=== PATIENT | female | born 1970 | race Caucasian/White ===

== ENCOUNTER 2017-10-26 15:06 | Emergency (ER) | payer OTHER ==
[~2017-10-26 15:06] MED LIST: Ativan1 MG PO; BUDE32NIS; BUPR150T2; CETI10; CHOL10002 PO; CLON.1; CLON.1 PO; CLON1; CLON1 PO; DOCU100; ESTR2 PO; FISH1000 PO; FLAX PO; HORMONES; Hair, Skin & N1 EACH PO; LAMO25; LITH300C PO; LORA2; LORA2 PO; MELA3 PO; MULVITB&C PO; ONDA8ODT MM; OXYACE5T PO; OXYB5 PO; PROM25 PO; QUET25 PO; RANI150 PO; RXHYDMOR2 PO; RXLORA1 PO; SAPHRIS5 MG SL; SENNP; SERT100; SERT50 PO; SULTRIDS PO; TOPI100; TOPI100 PO; TOPI25; TRAZ50 PO; ZOLP10
== END 2017-10-26 16:12 | disposition left against medical advice (07) ==
LOC: ER 15:06
DX: Z53.21 Procedure and treatment not carried out due to patient leaving prior to being seen by health care provider (principal)

== ENCOUNTER 2017-10-27 11:09 | Emergency (ER) | payer OTHER ==
[~2017-10-27] VITALS: Ht 160 cm; Wt 88.5 kg
== END 2017-10-27 14:34 | disposition home or self-care (01) ==
LOC: ER 11:09
DX: S06.0X1A Concussion with loss of consciousness of 30 minutes or less, initial encounter (principal); F31.9 Bipolar disorder, unspecified; Z88.8 Allergy status to other drugs, medicaments and biological substances; Z79.899 Other long term (current) drug therapy; Z87.891 Personal history of nicotine dependence; W01.0XXA Fall on same level from slipping, tripping and stumbling without subsequent striking against object, initial encounter; Y99.0 Civilian activity done for income or pay
CPT/HCPCS: 70450; 99284

== ENCOUNTER 2017-12-19 05:14 | Emergency (ER) | payer OTHER ==
[~2017-12-19] VITALS: Ht 160 cm; Wt 87.1 kg
[2017-12-19 06:54] LABS: BASOPHILS ABSOLUTE AUTO 0.05 K/mm3 (0.00-0.23); BASOPHILS PERCENT AUTO 0 % (0-2); EOSINOPHILS ABSOLUTE AUTO 0.08 K/mm3 (0.00-0.68); EOSINOPHILS PERCENT AUTO 1 % (0-6); Hematocrit 40.4 % (33.0-51.0); Hemoglobin 13.1 g/dL (11.5-16.0); IMMATURE GRAN ABSOLUTE AUTO 0.03 K/mm3 (0.00-0.10); IMMATURE GRAN PERCENT AUTO 0 % (0-1); LYMPHOCYTES ABSOLUTE AUTO 2.16 K/mm3 (0.84-5.20); LYMPHOCYTES PERCENT AUTO 19 % (21-46); MONOCYTES ABSOLUTE AUTO 0.77 K/mm3 (0.16-1.47); MONOCYTES PERCENT AUTO 7 % (4-13); Mean Corpuscular HGB 29.4 pg (26.0-34.0); Mean Corpuscular HGB Conc 32.4 g/dL (31.5-36.5); Mean Corpuscular Volume 91 fL (80-100); Mean Platelet Volume 9.6 fL (9.1-12.4); NEUTROPHILS ABSOLUTE AUTO 8.37 K/mm3 (1.96-9.15); NEUTROPHILS PERCENT AUTO 73 % (41-73); Platelet Count 274 K/mm3 (150-400); RDW Coefficient Variation 13.3 % (11.7-14.2); RDW Standard Deviation 43.8 fL (35.1-46.3); Red Blood Cell Count 4.45 M/mm3 (3.80-5.20); White Blood Cell Count 11.46 K/mm3 (4.00-11.30)
[2017-12-19 07:12] LABS: Alanine Aminotransfer (ALT/SGP 22 U/L (12-78); Albumin, Blood 3.4 g/dL (3.4-5.0); Albumin/Globulin Ratio 0.8 (0.8-1.8); Alk Phos 88 U/L (50-136); Anion Gap 10 mmol/L (6-16); Aspartate Aminotrans (AST/SGOT 17 U/L (12-37); Bilirubin, Total 0.2 mg/dL (0.1-1.0); Blood Urea Nitrogen 16 mg/dL (8-24); Bun/Creatinine Ratio 20.1 (12.0-20.0); CO2, Blood 19 mmol/L (21-32); Calcium, Blood 8.7 mg/dL (8.5-10.1); Chloride, Blood 110 mmol/L (98-108); Glomerular Filtration Rate >60 (60-); Glucose, Blood 106 mg/dL (70-99); Potassium, Blood 4.1 mmol/L (3.5-5.5); Sodium, Blood 139 mmol/L (136-145); Total Protein, Blood 7.4 g/dL (6.4-8.2)
[2017-12-19] MEDS ORDERED: Percocet 5-3251 EACH PO (08:52)
== END 2017-12-19 09:16 | disposition home or self-care (01) ==
LOC: ER 05:14
PROVIDERS: Emergency Medicine
DX: N13.2 Hydronephrosis with renal and ureteral calculous obstruction (principal); F31.9 Bipolar disorder, unspecified; Z87.891 Personal history of nicotine dependence; Z88.8 Allergy status to other drugs, medicaments and biological substances; Z79.899 Other long term (current) drug therapy
CPT/HCPCS: 36415; 76770; 80053; 81000; 85025; 96374; 96375; 96376; 99284; J1170; J1885; J2405

== ENCOUNTER → 2018-02-10 | Outpatient (CLI) | payer OTHER ==
[~2018-02-10] MED LIST changes: +Percocet 5-3251 EACH PO
== END | disposition home or self-care (01) ==
LOC: LAB SHORT 16:33 → LAB EV 16:33
DX: J02.9 Acute pharyngitis, unspecified (principal)
CPT/HCPCS: 87070

== ENCOUNTER 2018-12-27 06:07 | Emergency (ER) | payer OTHER ==
[~2018-12-27] VITALS: Ht 160 cm; Wt 79.4 kg
[2018-12-27] MEDS ORDERED: BUPR100 PO (07:22)
[2018-12-27] MEDS ORDERED: IBUP800 PO (08:45)
== END 2018-12-27 08:58 | disposition home or self-care (01) ==
LOC: ER 06:07
DX: S80.02XA Contusion of left knee, initial encounter (principal); S80.01XA Contusion of right knee, initial encounter; F31.9 Bipolar disorder, unspecified; Z88.8 Allergy status to other drugs, medicaments and biological substances; Z79.899 Other long term (current) drug therapy; Z87.891 Personal history of nicotine dependence; V00.131A Fall from skateboard, initial encounter
CPT/HCPCS: 73562-LT; 73562-RT; 99283-25

== ENCOUNTER 2019-06-02 10:42 | Emergency (ER) | payer OTHER ==
[~2019-06-02] VITALS: Ht 157.5 cm; Wt 81.7 kg
[~2019-06-02 10:42] MED LIST changes: +BUPR100 PO; +IBUP800 PO
[2019-06-02] MEDS ORDERED: HYDHCL25 PO (11:21)
[2019-06-02 12:01] LABS: Source, Urine Clean Catch
[2019-06-02 12:05] LABS: Bilirubin, Urine Neg (Neg); Blood, Urine 1+ (Neg); Glucose Qualitative, Urine Neg (Neg); Ketones, Urine Neg (Neg); Leukocyte Esterase, Urine Neg (Neg); Nitrite, Urine Neg (Neg); Protein, Urine Neg (Neg); Urobilinogen, Urine NORM (Normal)
[2019-06-02 12:13] LABS: Appearance, Urine Clear (Clear); Color, Urine Yellow (P-Yellow)
[2019-06-02 12:15] LABS: Amorphous Mod (0-Heavy)
[2019-06-02 12:16] LABS: Bacteria Few /hpf; Squamous Epithelial Cells Few /hpf (Few)
[2019-06-02] MEDS ORDERED: IBUP400 PO (13:39)
== END 2019-06-02 13:44 | disposition home or self-care (01) ==
LOC: ER 10:42
PROVIDERS: Emergency Medicine
DX: N20.0 Calculus of kidney (principal); F31.9 Bipolar disorder, unspecified; Z88.8 Allergy status to other drugs, medicaments and biological substances; Z79.899 Other long term (current) drug therapy
CPT/HCPCS: 74176; 81001; 99284-25

== ENCOUNTER → 2020-04-23 | Outpatient (CLI) | payer OTHER ==
[~2020-04-23] MED LIST changes: +HYDHCL25 PO; +IBUP400 PO
[2020-04-23 14:17] LABS: BASOPHILS ABSOLUTE AUTO 0.04 K/mm3 (0.00-0.23); BASOPHILS PERCENT AUTO 0 % (0-2); EOSINOPHILS ABSOLUTE AUTO 0.09 K/mm3 (0.00-0.68); EOSINOPHILS PERCENT AUTO 1 % (0-6); Hematocrit 41.9 % (33.0-51.0); Hemoglobin 13.8 g/dL (11.5-16.0); IMMATURE GRAN ABSOLUTE AUTO 0.01 K/mm3 (0.00-0.10); IMMATURE GRAN PERCENT AUTO 0 % (0-1); LYMPHOCYTES ABSOLUTE AUTO 2.53 K/mm3 (0.84-5.20); LYMPHOCYTES PERCENT AUTO 28 % (21-46); MONOCYTES PERCENT AUTO 6 % (4-13); Mean Corpuscular HGB Conc 32.9 g/dL (31.5-36.5); Mean Corpuscular Volume 91 fL (80-100); Mean Platelet Volume 9.8 fL (9.1-12.4); NEUTROPHILS ABSOLUTE AUTO 5.95 K/mm3 (1.96-9.15); NEUTROPHILS PERCENT AUTO 65 % (41-73); Platelet Count 268 K/mm3 (150-400); RDW Coefficient Variation 13.2 % (11.7-14.2); RDW Standard Deviation 43.7 fL (35.1-46.3); White Blood Cell Count 9.12 K/mm3 (4.00-11.30)
[2020-04-23 14:44] LABS: Albumin, Blood 4.1 g/dL (3.4-5.0); Bilirubin, Total 0.2 mg/dL (0.1-1.0); Bun/Creatinine Ratio 15.4 (12.0-20.0); Calcium, Blood 8.9 mg/dL (8.5-10.1); Creatinine, Blood 1.04 mg/dL (0.40-1.00); Thyroid Stimulating Hormone 2.031 uIU/mL (0.360-4.800); Total Protein, Blood 8.1 g/dL (6.4-8.2)
== END | disposition home or self-care (01) ==
LOC: LAB EV 14:04 → LAB SHORT 14:04
PROVIDERS: Physician Assistant Medical
DX: R53.83 Other fatigue (principal); Z20.828 Contact with and (suspected) exposure to other viral communicable diseases
CPT/HCPCS: 80053; 84443; 85025; U0003

== ENCOUNTER 2025-09-04 09:46 | Emergency (ER) | payer OTHER ==
[~2025-09-04] VITALS: Ht 157.5 cm; Wt 82.5 kg
[2025-09-04 10:07] VITALS: BP 141/98
[2025-09-04] MEDS ORDERED: IBUP600 PO (10:39)
[2025-09-04] MEDS ORDERED: Ketorolac Tromethamine 15mg Vial IM ONE (10:55)
== END 2025-09-04 11:13 | disposition home or self-care (01) ==
LOC: ER 09:46
DX: M25.512 Pain in left shoulder (principal); Z88.8 Allergy status to other drugs, medicaments and biological substances; Z79.899 Other long term (current) drug therapy; W18.30XA Fall on same level, unspecified, initial encounter
CPT/HCPCS: 96374; 99283-25; J1885